=== PATIENT | male | born 1980 | race Caucasian/White ===

== ENCOUNTER 2024-12-27 16:17 | Emergency (ER) | payer OTHER ==
[2024-12-27] MEDS ORDERED: Naloxone 0.4 MG/ML SDV IVPUSH PRN (16:41)
[2024-12-27 16:54] LABS: BASOPHILS ABSOLUTE AUTO 0.1 x10-3/uL (0.0-0.3); EOSINOPHILS ABSOLUTE AUTO 0.2 x10-3/uL (0.0-0.6); LYMPHOCYTES ABSOLUTE AUTO 2.1 x10-3/uL (0.5-4.5); RED CELL DISTRIBUTION WIDTH 12.9 % (12.4-15.0)
[2024-12-27 16:57] LABS: BASOPHILS PERCENT AUTO 0.9 % (0.3-3.8); EOSINOPHILS PERCENT AUTO 2.5 % (0.1-6.8); LYMPHOCYTES PERCENT AUTO 22.4 % (15.8-45.3); MEAN PLATELET VOLUME 8.7 fL (6.7-11.0); MONOCYTES ABSOLUTE AUTO 0.8 x10-3/uL (0.0-1.2); MONOCYTES PERCENT AUTO 8.6 % (5.5-15.2); NEUTROPHILS ABSOLUTE AUTO 6.1 x10-3/uL (1.7-6.9); NEUTROPHILS PERCENT AUTO 65.6 % (40.3-71.8); PLATELET COUNT,PLT 347 x10(3)uL (117-477); RED BLOOD CELL COUNT 6.14 x10(6)uL (3.90-5.90); WHITE BLOOD CELL COUNT,WBC 9.3 x10-3/uL (3.2-10.1)
[2024-12-27 17:05] LABS: BLOOD UREA NITROGEN,BUN 12 mg/dL (7-18); CARBON DIOXIDE,CO2 25 mmol/L (21-32); CHLORIDE,CL 103 mmol/L (100-110); CREATININE 1.2 mg/dL (0.70-1.30); ESTIMATED GFR 76 mL/min (>60); GLUCOSE RANDOM 136 mg/dL (80-116); POTASSIUM,K 3.7 mmol/L (3.5-5.3); SODIUM,NA 138 mmol/L (135-145)
[2024-12-27 17:07] LABS: ETHANOL BLOOD MEDICAL < 0.03 % (<0.03)
[2024-12-27 17:11] LABS: A/G RATIO 1.2; ALANINE AMINOTRANSFERASE,ALT 108 U/L (12-36); ASPARTATE AMNIOTRANSFERASE,AST 60 IU/L (5-25); BILIRUBIN TOTAL 0.6 mg/dL (0.1-1.3); PROTEIN TOTAL,TP 8.4 g/dL (6.0-8.0)
[2024-12-27] MEDS: Ondansetron 4 MG/2 ML SDV IVPUSH ONE (17:12)
[2024-12-27] MEDS: Diphtheria,Pertussis(Acell),Tetanus Vaccine 0.5 ML Syringe IM ONE (17:22)
[2024-12-27] MEDS: Sodium Chloride 0.9% 10 ML Syringe FLUSH PRN (17:23)
== END 2024-12-27 17:55 ==
LOC: FB.ED 16:17
DX: T21.22XA Burn of second degree of abdominal wall, initial encounter (principal); T21.24XA Burn of second degree of lower back, initial encounter; T21.11XA Burn of first degree of chest wall, initial encounter; S00.81XA Abrasion of other part of head, initial encounter; S80.812A Abrasion, left lower leg, initial encounter; Z23 Encounter for immunization; V49.49XA Driver injured in collision with other motor vehicles in traffic accident, initial encounter; Y93.89 Activity, other specified
CPT/HCPCS: 71045; 73130; 80053; 80307; 83690; 85025; 90471; 90715; 93005; 93010; 96361; 96374; 96375; 99285; J2270; J2405; J7030